=== PATIENT | female | born 1990 | race Caucasian/White ===

== ENCOUNTER 2020-11-30 07:01 | Emergency (ER) | payer MEDICAID ==
[~2020-11-30] VITALS: Ht 162.6 cm; Wt 88.6 kg
[2020-11-30 07:09] VITALS: BP 124/79
--- NOTE | 2020-11-30 07:14 | NUR ---
PT AMBULATED TO BED 4 WITH STEADY GAIT, PROVIDED UA SAMPLE AT THIS TIME.
[2020-11-30] MEDS ORDERED: ACETAMINOPHEN EXTRA STRENGTH 500 MG TAB PO ONE (07:40)
--- NOTE | 2020-11-30 07:43 | NUR ---
30 YEAR OLD FEMALE COMPLAINS OF LOWER ABDOMINAL PAIN X THIS MORNING. PAIN 6/10, SHARP, LOCAL, INTERMITTENT. DENIES NAUSEA/VOMITING/DIARRHEA. NORMOACTIVE BOWEL SOUNDS PRESENT THROUGHOUT. PATIENT STATES , (CONFIRMS 1 MISCARRIAGE), UNKNOWN GESTATION, VERBALIZED CRAMPING AND WHITE DISCHARGE, DENIES VAGINAL BLEEDING. PATIENT CURRENTLY NOT TAKING VITAMINS, MD APPT FOR DECEMBER 09, 2020. AO4, BREATHING EVEN AND UNLABORED, SKIN WARM AND DRY. BED IN LOWEST POSITION, LOCKED, X1 SIDERAIL UP. PMH - DENIED NKA
[2020-11-30 07:56] LABS: BASOPHILS % (AUTO) 0.5 % (0.0-2.0); EOSINOPHILS # (AUTO) 0.2 K/uL (0-0.4); EOSINOPHILS % (AUTO) 2.6 % (0.0-4.0); HEMATOCRIT 35.3 % (36-48); HEMOGLOBIN 11.8 g/dL (12.0-16.0); LYMPHOCYTES # (AUTO) 1.4 K/uL (2.5-16.5); LYMPHOCYTES % (AUTO) 19.9 % (20.5-51.1); MEAN CORPUSCULAR HEMOGLOBIN 29 pg (27-31); MEAN CORPUSCULAR HGB CONC 33 g/dL (33-37); MEAN CORPUSCULAR VOLUME 86.3 fL (80-94); MONOCYTES # (AUTO) 0.4 K/uL (0.8-1.0); MONOCYTES % (AUTO) 5.6 % (1.7-9.3); NEUTROPHILS # (AUTO) 5.2 K/uL (1.8-7.7); NEUTROPHILS % (AUTO) 71.4 % (42.2-75.2); PLATELET COUNT (AUTO) 251 K/uL (140-450); RED BLOOD CELL COUNT(AUTO) 4.09 MIL/uL (4.20-5.40); RED CELL DISTRIBUTION WIDTH 14.1 % (11.6-13.7); WHITE BLOOD COUNT (AUTO) 7.2 K/uL (4.8-10.8)
[2020-11-30 08:01] LABS: APPEARANCE,URINE CLEAR (CLEAR); BILIRUBIN,URINE NEGATIVE (NEGATIVE); BLOOD, URINE NEGATIVE (NEGATIVE); COLOR,URINE YELLOW (YELLOW); LEUKOCYTE ESTERASE ,URINE NEGATIVE (NEGATIVE); NITRITE, URINE NEGATIVE (NEGATIVE); UGLUCOSE NEGATIVE (NEGATIVE)
[2020-11-30 08:16] LABS: ALBUMIN 3.9 g/dL (3.4-5.0); ANION GAP 14.1 (8-16); CREATININE 0.8 mg/dL (0.6-1.3); POTASSIUM 4.1 mmol/L (3.5-5.1); TOTAL BILIRUBIN 0.3 mg/dL (0.0-1.0)
--- NOTE | 2020-11-30 08:36 | NUR ---
PT IN BED, CALM, EYES OPEN, BREATHING EVEN AND UNLABORED. NO APPARENT DISTRESS NOTED. WILL CONTINUE TO MONITOR.
[2020-11-30] MEDS ORDERED: ACET-2619 PO (09:29)
[2020-11-30 09:36] VITALS: BP 124/79
--- NOTE | 2020-11-30 09:37 | NUR ---
Patient discharged with v/s stable. Written and verbal after care instructions ABOUT THREATENED MISCARRIAGE, ABDOMINAL PAIN, AND FIRST TRIMESTER OF given and explained. Patient alert, oriented and verbalized understanding of instructions. Ambulatory with steady gait. All questions addressed prior to discharge. ID band removed. Patient advised to follow up with PMD. Rx of TYLENOL given. Patient educated on indication of medication including possible reaction and side effects. Opportunity to ask questions provided and answered.
== END 2020-11-30 09:37 | disposition home or self-care (01) ==
LOC: MED 07:01
DX: O20.0 Threatened abortion (principal); Z79.899 Other long term (current) drug therapy
CPT/HCPCS: 36415; 76817; 80053; 81003; 81025; 83690; 84702; 85025; 86900; 86901; 99284

== ENCOUNTER 2021-08-22 02:10 | Inpatient (IN) | payer OTHER, SELFPAY ==
[~2021-08-22] VITALS: Ht 162.6 cm; Wt 77.1 kg
[~2021-08-22 02:10] MED LIST: ACET-2619 PO
--- NOTE | 2021-08-22 02:11 | NUR ---
ARRIVED BY EMS AND MOVED TO ER BED 3
--- NOTE | 2021-08-22 02:11 | NUR ---
REPORTS SEVERE ABDOMINAL PAIN RATED 10/10 WITH HISTORY OF RECENT 3 WEEKS AGO. PAIN WAS ONSET YESTERDAY AND JUST KEPT GETTING WORSE. PATIENT WITH NO RELIEF IN PAIN.
--- NOTE | 2021-08-22 02:11 | NUR ---
PT SCOOBY ALS. TAKEN TO ER BED 3
--- NOTE | 2021-08-22 02:12 | NUR ---
ARRIVED WITH 20G IV TO L HAND INITIATED BY EMS.
[2021-08-22 02:13] VITALS: BP 144/89
[2021-08-22] MEDS ORDERED: MORPHINE SULFATE 2 MG/ML SYR IVP ONE (02:15)
[2021-08-22] MEDS ORDERED: NACL 0.9% 1,000 ML IV SCH (02:15)
[2021-08-22] MEDS ORDERED: ONDANSETRON 4 MG/2 ML VIAL IVP ONE (02:15)
[2021-08-22 02:27] LABS: APPEARANCE,URINE CLEAR (CLEAR); BILIRUBIN,URINE NEGATIVE (NEGATIVE); BLOOD, URINE NEGATIVE (NEGATIVE); COLOR,URINE YELLOW (YELLOW); LEUKOCYTE ESTERASE ,URINE NEGATIVE (NEGATIVE); NITRITE, URINE NEGATIVE (NEGATIVE); PH,URINE 7.5 (5.0-9.0); UGLUCOSE NEGATIVE (NEGATIVE)
[2021-08-22 02:27] LABS: BASOPHILS # (AUTO) 0.1 K/uL (0.00-0.22); BASOPHILS % (AUTO) 0.9 % (0.0-2.0); EOSINOPHILS # (AUTO) 0.3 K/uL (0-0.4); EOSINOPHILS % (AUTO) 4.5 % (0.0-4.0); HEMATOCRIT 38.9 % (36-48); HEMOGLOBIN 13.1 g/dL (12.0-16.0); LYMPHOCYTES # (AUTO) 2.6 K/uL (2.5-16.5); LYMPHOCYTES % (AUTO) 36.4 % (20.5-51.1); MEAN CORPUSCULAR HEMOGLOBIN 29 pg (27-31); MEAN CORPUSCULAR HGB CONC 34 g/dL (33-37); MEAN CORPUSCULAR VOLUME 86.6 fL (80-94); MONOCYTES # (AUTO) 0.3 K/uL (0.8-1.0); MONOCYTES % (AUTO) 4.8 % (1.7-9.3); NEUTROPHILS # (AUTO) 3.8 K/uL (1.8-7.7); NEUTROPHILS % (AUTO) 53.4 % (42.2-75.2); PLATELET COUNT (AUTO) 236 K/uL (140-450); RED BLOOD CELL COUNT(AUTO) 4.49 MIL/uL (4.20-5.40); RED CELL DISTRIBUTION WIDTH 14.6 % (11.6-13.7); WHITE BLOOD COUNT (AUTO) 7.2 K/uL (4.8-10.8)
[2021-08-22 02:45] LABS: ALBUMIN 3.9 g/dL (3.4-5.0); ANION GAP 13.7 (8-16); CARBON DIOXIDE 27.1 mmol/L (21-32); CREATININE 0.9 mg/dL (0.6-1.3); POTASSIUM 3.8 mmol/L (3.5-5.1); TOTAL BILIRUBIN 0.5 mg/dL (0.0-1.0)
[2021-08-22] MEDS ORDERED: PIPERACILLIN/TAZOBACTAM 3.375 GM in DEXTROSE 5% 50 ML IV ONE (04:35)
[2021-08-22] MEDS ORDERED: PIPERACILLIN/TAZOBACTAM 3.375 GM VIAL IV ONE ×2 (04:54→12:32)
[2021-08-22] MEDS ORDERED: KCL 20 MEQ/WATER INJ PREMIX 200 ML IV PRN (05:35)
[2021-08-22] MEDS ORDERED: MAGNESIUM OXIDE 400 MG TAB PO PRN (05:35)
[2021-08-22] MEDS ORDERED: ACETAMINOPHEN 325 MG TAB PO PRN (05:35)
[2021-08-22] MEDS ORDERED: MAG SULF 2000 MG/WATER PREMIX 50 ML IV PRN (05:35)
[2021-08-22] MEDS ORDERED: ONDANSETRON 4 MG/2 ML VIAL IVP PRN (05:35)
[2021-08-22] MEDS ORDERED: POTASSIUM CHLORIDE 10 MEQ TABER PO PRN (05:35)
[2021-08-22] MEDS: NACL 0.9% 1,000 ML IV SCH ×2 (06:20→17:58)
[2021-08-22 06:36] LABS: PROTHROMBIN TIME 9.9 secs (10.8-13.4)
--- NOTE | 2021-08-22 07:16 | NUR ---
RECEIVED REPORT FROM ABIODUN ALMODOVAR. TRANSFER OF CARE AT THIS TIME.
--- NOTE | 2021-08-22 07:29 | NUR ---
NEW IV DRESSING IN PLACE, PT WAS PLACED IN GOWN, NEW LINENS AT THIS TIME. Patient appears to be resting comfortably in bed. Vital Signs within normal limits. Respirations even and unlabored.
[2021-08-22] MEDS: DOCUSATE SODIUM 100 MG GELCAP PO SCH (09:06)
--- NOTE | 2021-08-22 09:40 | NUR ---
MOTHER AT BEDSIDE. PER PT CONSENT, MOTHER AT BEDSIDE WAS GIVEN UPDATE WWITH PHONE UPDATE TO .
--- NOTE | 2021-08-22 10:28 | NUR ---
PT AMBULATED WITH EVEN AND STEADY GAIT TO BATHROOM AT THIS TIME.
[2021-08-22] MEDS: MORPHINE SULFATE 4 MG/ML SYR IVP PRN ×2 (10:34→19:51)
--- NOTE | 2021-08-22 11:22 | NUR ---
DC PLANNIN YRS OLD MALE PATIENT WAS ADMITTED FROM HOME WITH A DX OF ACUTE CHOLECYSTITIS. PATIENT HAS A HX OF VAGINAL DELIVERY 3 WEEKS AGO. ABD US AND CT ABD SHOWED CHOLECYSTITIS. ADMINISTERED IVF IV ABX ZOSYN AND PAIN MEDS. CONSULTED WITH SURGEON DR ELMORE FOR POSSIBLE LAP APPY. DC PLAN TO GO HOME WHEN STABLE. CM TO FOLLOW
[2021-08-22] MEDS: PIPERACILLIN/TAZOBACTAM 3.375 GM in DEXTROSE 5% 50 ML IV SCH ×2 (12:00→17:58)
--- NOTE | 2021-08-22 12:50 | NUR ---
Dr. Hassan at bedside for eval.
--- NOTE | 2021-08-22 13:22 | NUR ---
Patient will be admitted to care of SHAIKH TUSHAR. Admited to [facility]. Will go to room 104B. Belongings list completed. Report to CHRISTIANO ALMODOVAR.
--- NOTE | 2021-08-22 13:51 | NUR ---
PT WAS TAKEN TO MED SURG, MOTHER ASSISTED BY SECURITY TO CHECK IN FRONT AND TAKEN TO PT ROOM DUE TO BEING PARTIALLY BLIND.
--- NOTE | 2021-08-22 14:13 | NUR ---
PATIENT HAS BEEN SCREENED AND CATEGORIZED LOW NUTRITION RISK. PATIENT WILL BE SEEN WITHIN 7 DAYS OF ADMISSION. 08/28/[address]
--- NOTE | 2021-08-22 14:23 | NUR ---
RECIVE PATIENT AND REPORT FROM ARBOREAL SCIENTIST, 31 YRS OLD FEMALE AX4 PATIENT WAS ADMITTED FROM HOME WITH A DX OF ACUTE CHOLECYSTITIS. PATIENT HAS A HX OF VAGINAL DELIVERY 3 WEEKS AGO. ABD US AND CT ABD SHOWED CHOLECYSTITIS. PATIENT DENIES PAIN AT THIS TIME, BREATHING EVEN UNLABORED ON ROOM AIR, HER MOM NEXT TO BED SIDE, POC DISCUSSED, CALLS LIGHT WITHIN REACH, ALL SAFETY MEASURES ON PLACE
[2021-08-22 16:12] VITALS: BP 106/71
--- NOTE | 2021-08-22 17:06 | NUR ---
PATIENT IN BED, MOM NEXT BED SIDE, PATIENT WANT TO EAT ASKED DR ELMORE, HE ASKED TO GIVE FOOD UNTIL MIDNIGHT, EXPLAINED AND EDUCATE PATIENT, TO KEEP NPO FROM MIDNIGHT. NO COMPLAINS, NO SOD NOTED, ALL SAFETY MEASURES ON PLACE, CALLS LIGHT WITHIN REACH
[2021-08-22 18:54] VITALS: BP 106/71
--- NOTE | 2021-08-22 19:09 | NUR ---
REPORT GIVEN TO SCORER HELPER NURSE
[2021-08-22 20:00] VITALS: BP 112/72
[2021-08-23] MEDS: PIPERACILLIN/TAZOBACTAM 3.375 GM in DEXTROSE 5% 50 ML IV SCH ×4 (00:11→17:05)
[2021-08-23 04:00] VITALS: BP 116/72
[2021-08-23] MEDS: NACL 0.9% 1,000 ML IV SCH ×2 (06:37→19:13)
[2021-08-23 07:04] LABS: BASOPHILS % (AUTO) 0.4 % (0.0-2.0); EOSINOPHILS # (AUTO) 0.3 K/uL (0-0.4); EOSINOPHILS % (AUTO) 5.4 % (0.0-4.0); HEMATOCRIT 36.2 % (36-48); LYMPHOCYTES # (AUTO) 1.9 K/uL (2.5-16.5); LYMPHOCYTES % (AUTO) 32.8 % (20.5-51.1); MEAN CORPUSCULAR HEMOGLOBIN 29 pg (27-31); MEAN CORPUSCULAR HGB CONC 33 g/dL (33-37); MEAN CORPUSCULAR VOLUME 87.1 fL (80-94); MONOCYTES # (AUTO) 0.3 K/uL (0.8-1.0); NEUTROPHILS # (AUTO) 3.2 K/uL (1.8-7.7); NEUTROPHILS % (AUTO) 56.4 % (42.2-75.2); PLATELET COUNT (AUTO) 204 K/uL (140-450); RED BLOOD CELL COUNT(AUTO) 4.16 MIL/uL (4.20-5.40); RED CELL DISTRIBUTION WIDTH 14.5 % (11.6-13.7); WHITE BLOOD COUNT (AUTO) 5.7 K/uL (4.8-10.8)
--- NOTE | 2021-08-23 07:10 | NUR ---
RECEIVED REPORT FROM ENVELOPE SEALER NURSE FOR CONTINUITY OF CARE. PT IS AWAKE AND ALERT. A&OX4. ON RA WITH BREATHING IS UNLABORED. AMBULATORY INDEPENDENTLY. SKIN IS WARM, DRY, AND INTACT. IV IS IN THE RIGHT HAND 20 GAUGE RUNNING NS AT 80 ML PER HOUR PER ORDER. RAPID COVID NEGATIVE. PT IS STABLE. PLAN OF CARE DISCUSSED.
[2021-08-23 07:22] LABS: ALBUMIN 3.4 g/dL (3.4-5.0); ANION GAP 11.3 (8-16); CARBON DIOXIDE 27.6 mmol/L (21-32); CHOL/HDL RATIO 6.9 (1-4.5); CREATININE 0.9 mg/dL (0.6-1.3); MAGNESIUM 2.2 mg/dL (1.8-2.4); POTASSIUM 3.9 mmol/L (3.5-5.1); TOTAL BILIRUBIN 0.8 mg/dL (0.0-1.0)
--- NOTE | 2021-08-23 07:28 | NUR ---
Handoff with Fabi RN. Jameson Cai RN
[2021-08-23 07:31] LABS: PROTHROMBIN TIME 10.6 secs (10.8-13.4)
--- NOTE | 2021-08-23 08:00 | NUR ---
PT REFUSED VITAL SIGNS. EDUCATED HER ON IMPORTANCE OF OBTAINING VITAL SIGNS AND PT VERBALIZED UNDERSTANDING. PT STATED TO COME BACK LATER.
[2021-08-23] MEDS: DOCUSATE SODIUM 100 MG GELCAP PO SCH (08:36)
[2021-08-23] MEDS ORDERED: PROPOFOL 200 MG/20 ML VIAL IV ONE (09:52)
[2021-08-23] MEDS ORDERED: HYDROmorphone PFS 2 MG/ML SYR ONE (09:52)
[2021-08-23] MEDS ORDERED: MIDAZOLAM 2 MG/2 ML VIAL ONE (09:52)
[2021-08-23] MEDS ORDERED: GLYCOPYRROLATE 0.2 MG/ML VIAL ONE (10:00)
[2021-08-23] MEDS ORDERED: KETOROLAC 30 MG/ML VIAL ONE (10:00)
[2021-08-23] MEDS ORDERED: ROCURONIUM 50 MG/5 ML VIAL IV ONE (10:00)
[2021-08-23] MEDS ORDERED: NEOSTIGMINE 1:1000 10 MG/10 ML VIAL ONE (10:00)
[2021-08-23] MEDS ORDERED: SEVOFLURANE 250 ML BTL INH ONE (10:00)
--- NOTE | 2021-08-23 10:05 | NUR ---
PT WAS TAKEN TO THE OR VIA BED BY TWO OR NURSES. IV IS INTACT. PT IS STABLE.
[2021-08-23] MEDS ORDERED: BUPIVACAINE-MPF/EPI 0.5% 30 ML VIAL INJ ONE (10:22)
[2021-08-23] MEDS ORDERED: ONDANSETRON 4 MG/2 ML VIAL ONE (10:44)
[2021-08-23] MEDS ORDERED: METOCLOPRAMIDE 10 MG/2 ML INJ VIAL ONE (10:44)
[2021-08-23] MEDS ORDERED: DEXAMETHASONE 4 MG/ML VIAL ONE (10:44)
--- NOTE | 2021-08-23 12:45 | NUR ---
PT ARRIVED BACK FROM OR VIA BED WITH S/P BOUBACAR CONRAD. PT IS AWAKE AND ALERT, BUT DROWSY. IV WAS FLUSHED AND CONNECTED TO FLUIDS. FLUIDS ARE NOW RUNNING ORDERED. PT IS ON RA WITH O2 SAT 94%. BREATHING IS UNLABORED. FOUR INCISIONS ON THE ABDOMEN WITH DERMABOND IN PLACE; DRAFTING TEACHER. NO DRAINAGE NOTED AND WOUNDS ARE CLOSED. PT DENIES PAIN AT THIS TIME. WILL CONTINUE TO MONITOR.
[2021-08-23] MEDS: MORPHINE SULFATE 4 MG/ML SYR IVP PRN ×2 (13:06→17:07)
--- NOTE | 2021-08-23 13:06 | NUR ---
PT STATES SHE HAS PAIN AT A SCALE OF 10/10 IN THE ABDOMEN. BP WAS 113/70 PRIOR TO ADMINISTRATION OF MEDICATION. MEDICATION EDUCATION WAS PROVIDED AND PT VERBALIZED UNDERSTANDING. WILL MONITOR PAIN.
--- NOTE | 2021-08-23 15:00 | NUR ---
PT IS ASLEEP. CHEST RISE AND FALL IS SYMMETRICAL. ON RA WITH BREATHING UNLABORED. NO PAIN NOTED. PT IS STABLE.
[2021-08-23 16:00] VITALS: BP 107/82
--- NOTE | 2021-08-23 16:45 | NUR ---
PT WAS PLACED ON BEDPAN AND PT VOIDED. PT WAS CLEANED AND IS NOW RESTING COMFORTABLY. NO DISTRESS NOTED ON RA. IV FLUIDS ARE INFUSING ORDERED. WILL CONTINUE TO MONITOR.
--- NOTE | 2021-08-23 17:05 | NUR ---
PT WAS GIVEN MORPHINE FOR PAIN REQUESTED. PT STATES HER PAIN AT A SCALE OF 10/10 IN THE ABDOMEN. BP WAS STABLE PRIOR TO ADMINISTRATION OF MEDICATION. PT WAS ALSO GIVEN ZOFRAN FOR NAUSEA SHE STATED SHE WAS NAUSEOUS.
--- NOTE | 2021-08-23 19:11 | NUR ---
ENDORSED PT TO HUMAN RESOURCES RECEPTIONIST NURSE FOR CONTINUITY OF CARE. PT IS STABLE. PLAN OF CARE DISCUSSED.
--- NOTE | 2021-08-23 19:12 | NUR ---
RECEIVED REPORT FROM AM NURSE. PT IN BED EATING. NO SIGNS OF DISTRESS. REQUESTED TO USE THE RESTROOM. CARRIED OUT PATIENT REQUEST. WILL CONTINUE PATIENT PLAN OF CARE.
[2021-08-23 20:00] VITALS: BP 114/65
--- NOTE | 2021-08-23 20:00 | NUR ---
PT IN BED. SHOWS NO SIGNS OF DISTRESS AND IS BREATHING ON ROOM AIR. PT VITAL SIGNS FOLLOW BP: 114/65, HR: 72, TEMP:98.0, RR: 12, O2:95. PT SCD ARE ON. PT DENIES OF PAIN AT THIS TIME. EDUCATED THE PATIENT ON HOW TO USE THE INCENTIVE SPIROMETER AND DID A TEACH BACK.
[2021-08-23] MEDS: HYDROcodone/APAP 5/325 MG 1 TAB TAB PO PRN (22:01)
--- NOTE | 2021-08-23 22:10 | NUR ---
PT IN BED WATCHING TV. IV FLUID RUNNING AT 80ML/HR. COMPLAINS OF PAIN ON A SCALE OF 0-10 AND RATED IT 6/10. PT. RECEIVED NORCO AT 2201. WILL CONTINUE TO MONITOR.
--- NOTE | 2021-08-24 | NUR ---
PT LAYING IN BED. REQUESTED TO USE THE RESTROOM AND ASSISTED. PT ASKED FOR FOOD. EXPLAINED SHE IS ON A CLEAR LIQUID DIET AND CAN HAVE JELLO. PT. RECEIVED ZOSYN ORDER. CALL LIGHT IS WITHIN REACH, SAFETY MEASURES IN PLACE, AND WILL CONTINUE PLAN OF CARE.
[2021-08-24] MEDS: PIPERACILLIN/TAZOBACTAM 3.375 GM in DEXTROSE 5% 50 ML IV SCH ×3 (00:01→11:27)
--- NOTE | 2021-08-24 02:29 | NUR ---
PT IN BED SLEEPING. DENIES OF PAIN. CALL LIGHT WITHIN REACH AND SAFETY MEASURES IN PLACE. WILL CONTINUE TO DO FREQUENT ROUNDS.
--- NOTE | 2021-08-24 04:30 | NUR ---
ROUNDED ON PT. PT LAYING IN BED SLEEPING. SAFETY MEASURES IN PLACE. WILL CONTINUE TO MONITOR.
[2021-08-24] MEDS: MORPHINE SULFATE 4 MG/ML SYR IVP PRN (05:28)
--- NOTE | 2021-08-24 05:39 | NUR ---
PT IN BED SLEEPING. ASKED IF SHE IS IN PAIN AND RATED IT 8/10. ADMINISTERED PAIN MEDICATION. SAFETY MEASURES IN PLACE. CALL LIGHT WITHIN REACH. WILL CONTINUE TO MONITOR.
--- NOTE | 2021-08-24 06:06 | NUR ---
PT IN BED SLEEPING. RECEIVED SCHEDULED ABX. ORDER. SAFETY MEASURES IN PLACE. CALL LIGHT WITHIN REACH. WILL CONTINUE TO MONITOR.
--- NOTE | 2021-08-24 07:09 | NUR ---
ENDORSED PT TO AM SHIFT NURSE FOR CONTINUITY OF CARE. PT IS STABLE. PLAN OF CARE DISCUSSED.
--- NOTE | 2021-08-24 07:10 | NUR ---
RECEIVED BEDSIDE REPORT FROM SHIP'S CAPTAIN NURSE FOR CONTINUITY OF CARE. PT IS AWAKE AND ALERT. A&OX4. ON RA WITH BREATHING UNLABORED. SKIN IS WARM AND DRY. ABDOMINAL SURGICAL INCISIONS X [address], HASHER OPERATOR. PT IS AMBULATORY INDEPENDENTLY. PT IS STABLE. PLAN OF CARE DISCUSSED.
[2021-08-24 07:18] LABS: BASOPHILS % (AUTO) 0.2 % (0.0-2.0); EOSINOPHILS # (AUTO) 0.1 K/uL (0-0.4); EOSINOPHILS % (AUTO) 0.6 % (0.0-4.0); HEMATOCRIT 34.7 % (36-48); HEMOGLOBIN 11.7 g/dL (12.0-16.0); LYMPHOCYTES # (AUTO) 1.6 K/uL (2.5-16.5); LYMPHOCYTES % (AUTO) 18.3 % (20.5-51.1); MEAN CORPUSCULAR HEMOGLOBIN 29 pg (27-31); MEAN CORPUSCULAR HGB CONC 34 g/dL (33-37); MEAN CORPUSCULAR VOLUME 86.8 fL (80-94); MONOCYTES # (AUTO) 0.4 K/uL (0.8-1.0); NEUTROPHILS # (AUTO) 6.8 K/uL (1.8-7.7); NEUTROPHILS % (AUTO) 75.9 % (42.2-75.2); PLATELET COUNT (AUTO) 215 K/uL (140-450); RED CELL DISTRIBUTION WIDTH 14.2 % (11.6-13.7); WHITE BLOOD COUNT (AUTO) 8.9 K/uL (4.8-10.8)
[2021-08-24 07:21] LABS: ALBUMIN 3.3 g/dL (3.4-5.0); ANION GAP 13.5 (8-16); CARBON DIOXIDE 25.1 mmol/L (21-32); CREATININE 0.9 mg/dL (0.6-1.3); MAGNESIUM 2.1 mg/dL (1.8-2.4); POTASSIUM 3.6 mmol/L (3.5-5.1); TOTAL BILIRUBIN 0.8 mg/dL (0.0-1.0)
[2021-08-24] MEDS: NACL 0.9% 1,000 ML IV SCH (07:40)
[2021-08-24 08:00] VITALS: BP 116/76
[2021-08-24] MEDS ORDERED: ACET-8386 PO (08:08)
[2021-08-24] MEDS: DOCUSATE SODIUM 100 MG GELCAP PO SCH (08:11)
[2021-08-24 09:10] LABS: PROTHROMBIN TIME 10.3 secs (10.8-13.4)
--- NOTE | 2021-08-24 09:30 | NUR ---
PT IS UP IN THE ROOM WALKING AROUND WITH STEADY GAIT. PT DENIES PAIN AT THIS TIME. INCISIONS ON ABDOMEN ARE INTACT. PT REQUESTED SOLID FOODS AND WAS GIVEN A SANDWICH AND CRACKERS. ENCOURAGED PT TO USE INCENTIVE SPIROMETER AND TO PASS GAS. PT STATES SHE HAS NOT PASSED GAS SINCE THE PROCEDURE. WAITING FOR PT TO HAVE A BM OR PASS GAS BEFORE DISCHARGE. PT AWARE.
--- NOTE | 2021-08-24 10:30 | NUR ---
PT IS AWAKE AND ALERT. PT DENIES PAIN AT THIS TIME. BOWEL SOUNDS ARE ACTIVE AND PRESENT IN ALL FOUR QUADRANTS. PT IS USING PILLOW SPLINT TO PASS GAS. NO DISTRESS NOTED AT THIS TIME. WILL CONTINUE TO MONITOR PT.
[2021-08-24 10:34] VITALS: BP 116/76
[2021-08-24] MEDS: HYDROcodone/APAP 5/325 MG 1 TAB TAB PO PRN (11:27)
--- NOTE | 2021-08-24 11:27 | NUR ---
PT STATES SHE HAS PAIN AT A SCALE OF 6/10 IN THE ABDOMEN. PT WAS GIVEN NORCO FOR PAIN. PT ALSO STATES THAT SHE HAS AN OUTWARD BULGE THAT JUST OCCURRED IN HER RIGHT UPPER ABD WHILE WALKING IN HER ROOM. WILL INFORM SURGEON ON CASE, DR. ELMORE.
--- NOTE | 2021-08-24 11:36 | NUR ---
INFORMED DR. ELMORE OF THE BULGE ON THE UPPER ABDOMEN WHILE AMBULATING AND DOCTOR STATED HE WOULD BE THERE TO SEE HER IN THIRTY MIN. INFORMED PT THAT DOCTOR WILL BE HERE SHORTLY.
--- NOTE | 2021-08-24 12:51 | NUR ---
DR. ELMORE AT BEDSIDE. ASSESSED PT WHILE LAYING AND STANDING. NO OUTWARD BULGE NOTED WHILE STANDING OR LAYING. CLEARED PT TO BE DISCHARGED AND TO SEE HIM OUTPATIENT INSTRUCTED. TWO VISITORS AT BEDSIDE.
--- NOTE | 2021-08-24 13:40 | NUR ---
DISCHARGE INSTRUCTIONS WERE PROVIDED AND PT VERBALIZED UNDERSTANDING. INSTRUCTED PT IF SHE HAS WORSENING SYMPTOMS TO COME BACK TO THE ER. IV WAS REMOVED AND BLEEDING WAS CONTROLLED. ID BANDS WERE REMOVED. VITAL SIGNS ARE STABLE. BREATHING IS UNLABORED ON RA. ENCOURAGE PT TO AMBULATE ABLE AND USE INCENTIVE SPIROMETER TEN TIMES EVERY HOUR. PT VERBALIZED UNDERSTANDING. PT IS STABLE. PT WAS PICKED UP BY VIA WHEELCHAIR TO PRIVATE VEHICLE.
--- NOTE | 2021-08-26 10:00 | NUR ---
DC PLANNING QUINCY CALLED [facility] OFFICE AT SPOKE TO ESVIN TO SCHEDULED AN OUTPATIENT FOLLOW UP FOR PATIENT WITH MD CHARLES PACHECO ON 08/29/2021 AT 09:40AM AT [address] [place] [address]. PRECIOUS KRAUS [id number] QUINCY CALLED PATIENT TO INFORM HER OF ALREADY SCHEDULED FOLLOW UP APPOINTMENT WITH MD CHARLES PACHECO ON 08/29/2021 AT 09:40AM. SW PROVIDED PATIENT WITH APPOINMENT INFORMATION ADDRESS, TIME, DATE, AND DETAIL REMINDERS FOR PATIENT TO FOLLOW UP. PATIENT AGREED TO ATTEND.
== END 2021-08-24 13:40 | disposition home or self-care (01) | DRG 548 ==
LOC: MED 02:10 → MTU 05:38 → MMU 05:56 → OBSVTOIN 09:13 → MTU 13:16
PROVIDERS: ADMIT Hospitalist; ATTEND Hospitalist
PROC: 0DNU4ZZ Release Omentum, Percutaneous Endoscopic Approach (ICD-10-PCS; 2021-08-23)
PROC: 0FT44ZZ Resection of Gallbladder, Percutaneous Endoscopic Approach (ICD-10-PCS; principal; 2021-08-23 10:00)
DX: O99.63 Diseases of the digestive system complicating the puerperium (principal); K80.00 Calculus of gallbladder with acute cholecystitis without obstruction; K66.0 Peritoneal adhesions (postprocedural) (postinfection); Z20.822 Contact with and (suspected) exposure to COVID-19
CPT/HCPCS: 96361; 96365; 96375; 99285; G0378; 36415; 76705; 80053; 81003; 83036; 83605; 83690; 83735; 84484; 84703; 85025; 85610; 85730; 86886; 86900; 86901; 87040; 88304; 93005; C1887; J1100; J1170; J1885; J2250; J2270; J2405; J2543; J2704; J2710; J2765; J3490; J7030; J7060; J7120; Q0092

== ENCOUNTER 2022-01-15 18:23 | Emergency (ER) | payer OTHER ==
[~2022-01-15] VITALS: Ht 162.6 cm; Wt 87.1 kg
[~2022-01-15 18:23] MED LIST changes: +ACET-8386 PO
[2022-01-15 18:29] VITALS: BP 133/92
--- NOTE | 2022-01-15 18:58 | NUR ---
AMBULATED TO ER BED 2
--- NOTE | 2022-01-15 19:12 | NUR ---
Patient BIB by family from home. C/O vaginal bleeding x today. Patient had vaginal bleeding/passing blood clot, 7 weeks, LMP November,. A0.
--- NOTE | 2022-01-15 19:28 | NUR ---
Blood for labwork drawn from left arm per aprn. Patient tolerated well.
--- NOTE | 2022-01-15 19:41 | NUR ---
US at bedside.
[2022-01-15 19:52] LABS: BASOPHILS % (AUTO) 0.5 % (0.0-2.0); EOSINOPHILS # (AUTO) 0.1 K/uL (0-0.4); EOSINOPHILS % (AUTO) 1.8 % (0.0-4.0); HEMATOCRIT 34.1 % (36-48); HEMOGLOBIN 11.5 g/dL (12.0-16.0); LYMPHOCYTES % (AUTO) 28.2 % (20.5-51.1); MEAN CORPUSCULAR HEMOGLOBIN 30 pg (27-31); MEAN CORPUSCULAR HGB CONC 34 g/dL (33-37); MEAN CORPUSCULAR VOLUME 88.8 fL (80-94); MONOCYTES # (AUTO) 0.4 K/uL (0.8-1.0); NEUTROPHILS # (AUTO) 4.5 K/uL (1.8-7.7); NEUTROPHILS % (AUTO) 63.5 % (42.2-75.2); PLATELET COUNT (AUTO) 235 K/uL (140-450); RED BLOOD CELL COUNT(AUTO) 3.84 MIL/uL (4.20-5.40); RED CELL DISTRIBUTION WIDTH 13.9 % (11.6-13.7); WHITE BLOOD COUNT (AUTO) 7.1 K/uL (4.8-10.8)
[2022-01-15 20:13] LABS: APPEARANCE,URINE CLEAR (CLEAR); BILIRUBIN,URINE NEGATIVE (NEGATIVE); BLOOD, URINE 2+ (NEGATIVE); COLOR,URINE YELLOW (YELLOW); LEUKOCYTE ESTERASE ,URINE NEGATIVE (NEGATIVE); NITRITE, URINE NEGATIVE (NEGATIVE); UGLUCOSE NEGATIVE (NEGATIVE)
[2022-01-15 20:18] LABS: ALBUMIN 3.6 g/dL (3.4-5.0); ANION GAP 8.6 (8-16); CARBON DIOXIDE 27.1 mmol/L (21-32); CREATININE 0.8 mg/dL (0.6-1.3); POTASSIUM 3.7 mmol/L (3.5-5.1); TOTAL BILIRUBIN 0.4 mg/dL (0.0-1.0)
[2022-01-15 20:22] LABS: RBC,URINE 80-100 /HPF (0-5); WBC,URINE NONE SEEN /HPF (0-5)
--- NOTE | 2022-01-15 20:44 | NUR ---
Dr. Way at bedside to explain results.
[2022-01-15 20:50] VITALS: BP 133/92
--- NOTE | 2022-01-15 20:50 | NUR ---
Patient discharged with v/s stable. Written and verbal after care instructions given and explained. Patient verbalized understanding. Ambulatory with steady gait. All questions addressed prior to discharge. Advised to follow up with PMD.
== END 2022-01-15 20:50 | disposition home or self-care (01) ==
LOC: MED 18:23
DX: O20.0 Threatened abortion (principal); O21.8 Other vomiting complicating pregnancy; Z3A.01 Less than 8 weeks gestation of pregnancy; Z90.49 Acquired absence of other specified parts of digestive tract; Z79.899 Other long term (current) drug therapy
CPT/HCPCS: 36415; 76817; 80053; 81001; 81025; 84702; 85025; 86886; 86900; 86901; 99284; Q0092

== ENCOUNTER 2022-09-08 07:49 | Observation (INO) | payer OTHER ==
[~2022-09-08] VITALS: Ht 162.6 cm; Wt 83.9 kg
[~2022-09-08 07:49] MED LIST changes: -ACET-8386 PO; +ACET-8905 PO
[2022-09-08] MEDS ORDERED: MORPHINE SULFATE 4 MG/ML SYR IVP PRN (08:20)
[2022-09-08] MEDS ORDERED: MORPHINE SULFATE 4 MG/ML SYR ONE (08:25)
== END 2022-09-08 11:12 | disposition home or self-care (01) ==
LOC: MLD 07:49
PROVIDERS: ADMIT Obstetrics & Gynecology; ATTEND Obstetrics & Gynecology
DX: O99.891 Other specified diseases and conditions complicating pregnancy (principal); Z20.822 Contact with and (suspected) exposure to COVID-19; M54.9 Dorsalgia, unspecified; M79.604 Pain in right leg; Z3A.21 21 weeks gestation of pregnancy
CPT/HCPCS: 59025; 76805; 81000; 87426; 96374; G0378; J2270; Q0092

== ENCOUNTER 2022-11-10 07:13 | Observation (INO) | payer OTHER ==
[~2022-11-10] VITALS: Ht 162.6 cm; Wt 88.7 kg
[2022-11-10 07:26] VITALS: BP 116/70
--- NOTE | 2022-11-10 07:30 | NUR ---
PT AMB TO BED 2.
--- NOTE | 2022-11-10 07:33 | NUR ---
PT 7 MONTHS . PT TAKEN TO L&D PER DR GARVIN. WILL RETURN TO ER ONCE CLEARED IF NEEDED.
[2022-11-10] MEDS ORDERED: PANTOPRAZOLE 40 MG INJ VIAL IVP SCH (08:25)
[2022-11-10] MEDS: LACTATED RINGERS 1,000 ML IV SCH ×2 (08:41→09:40)
[2022-11-10] MEDS ORDERED: ONDANSETRON 4 MG/2 ML VIAL IVP PRN (08:50)
[2022-11-10] MEDS ORDERED: ONDANSETRON 4 MG/2 ML VIAL ONE (08:51)
[2022-11-10 09:31] VITALS: BP 102/64
--- NOTE | 2022-11-10 09:32 | NUR ---
PATIENT HAS BEEN SCREENED AND CATEGORIZED LOW NUTRITION RISK. PATIENT WILL BE SEEN WITHIN 7 DAYS OF ADMISSION. 11/17/22 REVIEWED BY JAZMIN K[address] RD
[2022-11-10 10:01] LABS: BASOPHILS % (AUTO) 0.4 % (0.0-2.0); EOSINOPHILS % (AUTO) 0.6 % (0.0-4.0); HEMATOCRIT 28.7 % (36-48); HEMOGLOBIN 9.9 g/dL (12.0-16.0); LYMPHOCYTES # (AUTO) 0.4 K/uL (2.5-16.5); LYMPHOCYTES % (AUTO) 7.2 % (20.5-51.1); MEAN CORPUSCULAR HEMOGLOBIN 29 pg (27-31); MEAN CORPUSCULAR HGB CONC 35 g/dL (33-37); MEAN CORPUSCULAR VOLUME 83.9 fL (80-94); MONOCYTES # (AUTO) 0.2 K/uL (0.8-1.0); NEUTROPHILS # (AUTO) 5.5 K/uL (1.8-7.7); NEUTROPHILS % (AUTO) 88.8 % (42.2-75.2); PLATELET COUNT (AUTO) 189 K/uL (140-450); RED BLOOD CELL COUNT(AUTO) 3.43 MIL/uL (4.20-5.40); RED CELL DISTRIBUTION WIDTH 13.3 % (11.6-13.7); WHITE BLOOD COUNT (AUTO) 6.2 K/uL (4.8-10.8)
[2022-11-10 10:14] LABS: ALBUMIN 3.1 g/dL (3.4-5.0); ANION GAP 12.5 (8-16); CARBON DIOXIDE 24.2 mmol/L (21-32); CREATININE 0.5 mg/dL (0.6-1.3); POTASSIUM 3.7 mmol/L (3.5-5.1); TOTAL BILIRUBIN 0.8 mg/dL (0.0-1.0)
[2022-11-10] MEDS ORDERED: PNV91TAB8 PO (11:12)
== END 2022-11-10 11:25 | disposition home or self-care (01) ==
LOC: EDSTATUS 07:34 → MLD 07:40
PROVIDERS: ADMIT Obstetrics & Gynecology; ATTEND Obstetrics & Gynecology
DX: O26.893 Other specified pregnancy related conditions, third trimester (principal); Z20.822 Contact with and (suspected) exposure to COVID-19; R10.9 Unspecified abdominal pain; Z3A.30 30 weeks gestation of pregnancy
CPT/HCPCS: 36415; 59025; 76700; 80053; 85025; 87426; 96361; 96374; 96375; C9113; G0378; J2405; Q0092

== ENCOUNTER 2023-06-22 09:11 | Emergency (ER) | payer OTHER ==
[~2023-06-22] VITALS: Ht 162.6 cm; Wt 88.6 kg
[~2023-06-22 09:11] MED LIST changes: +PNV91TAB8 PO
[2023-06-22 09:26] VITALS: BP 127/88; PULSE 74; RESP 18; TEMP 97.9; O2SAT 99
[2023-06-22 10:31] VITALS: BP 127/88; PULSE 74; RESP 18; TEMP 97.9; O2SAT 99
== END 2023-06-22 10:31 | disposition home or self-care (01) ==
LOC: MED 09:11
DX: O9A.211 Injury, poisoning and certain other consequences of external causes complicating pregnancy, first trimester (principal); M54.50 Low back pain, unspecified; Z3A.01 Less than 8 weeks gestation of pregnancy; Z79.899 Other long term (current) drug therapy; S30.0XXA Contusion of lower back and pelvis, initial encounter; W01.198A Fall on same level from slipping, tripping and stumbling with subsequent striking against other object, initial encounter; Y93.89 Activity, other specified; Y92.091 Bathroom in other non-institutional residence as the place of occurrence of the external cause; Y99.8 Other external cause status
CPT/HCPCS: 81025; 99282

== ENCOUNTER 2024-02-18 10:14 | Emergency (ER) | payer OTHER ==
[~2024-02-18] VITALS: Ht 162.6 cm; Wt 90.7 kg
[2024-02-18 10:21] VITALS: BP 128/89; PULSE 80; RESP 18; TEMP 98.9; O2SAT 98
[2024-02-18] MEDS ORDERED: IBUP-2213 PO (10:58)
[2024-02-18 11:04] VITALS: BP 122/82; PULSE 78; RESP 16; TEMP 98.9; O2SAT 99
== END 2024-02-18 11:04 | disposition home or self-care (01) ==
LOC: MED 10:14
DX: H00.015 Hordeolum externum left lower eyelid (principal); M26.622 Arthralgia of left temporomandibular joint; Z79.899 Other long term (current) drug therapy
CPT/HCPCS: 99282

== ENCOUNTER 2024-07-14 08:41 | Emergency (ER) | payer OTHER ==
[~2024-07-14] VITALS: Ht 160 cm; Wt 86.2 kg
[~2024-07-14 08:41] MED LIST changes: +IBUP-2213 PO
[2024-07-14 08:47] VITALS: BP 129/91; PULSE 94; RESP 16; TEMP 97.1; O2SAT 99
[2024-07-14] MEDS: KETOROLAC 60 MG/2 ML VIAL IM ONE (09:30)
[2024-07-14 10:09] LABS: APPEARANCE,URINE SLIGHTLY HAZY (CLEAR); BILIRUBIN,URINE 1+ (NEGATIVE); BLOOD, URINE NEGATIVE (NEGATIVE); COLOR,URINE YELLOW (YELLOW); LEUKOCYTE ESTERASE ,URINE NEGATIVE (NEGATIVE); NITRITE, URINE NEGATIVE (NEGATIVE); PROTEIN,URINE NEGATIVE (NEGATIVE); UGLUCOSE NEGATIVE (NEGATIVE); UROBILINOGEN,URINE 0.2 EU/dL (0.2 - 1)
[2024-07-14 10:10] LABS: RBC,URINE 0-5 /HPF (0-5); WBC,URINE 0-5 /HPF (0-5)
[2024-07-14 10:11] LABS: BACTERIA,URINE FEW /HPF (None Seen); MUCUS,URINE 1+ /LPF (None Seen); SQUAMOUS EPITHELIAL CELL,UR 0-3 (FEW) /LPF (0-3 (FEW))
[2024-07-14 10:13] LABS: ICTOTEST NEGATIVE (NEGATIVE)
[2024-07-14] MEDS: MORPHINE SULFATE 4 MG/ML SYR IM ONE (10:48)
[2024-07-14] MEDS ORDERED: HYDR-5071 PO (10:50)
[2024-07-14] MEDS ORDERED: IBUP-2213 PO (10:50)
[2024-07-14 11:00] VITALS: BP 104/66; PULSE 74; RESP 16; TEMP 36.16956; O2SAT 99
== END 2024-07-14 11:00 | disposition home or self-care (01) ==
LOC: MED 08:41
DX: M54.50 Low back pain, unspecified (principal); Z90.49 Acquired absence of other specified parts of digestive tract; Z79.899 Other long term (current) drug therapy
CPT/HCPCS: 81001; 81025; 96372; 99284; J1885; J2270